=== PATIENT | male | born 1990 ===

== ENCOUNTER 2017-03-12 05:58 | Emergency (ER) | payer OTHER ==
[2017-03-12 06:10] VITALS: O2SAT 97
[2017-03-12] MEDS ORDERED: Naproxen 550 mg Tab PO STA (07:26)
[2017-03-12] MEDS ORDERED: Naproxen 550 mg Tab PO ONE (07:45)
--- NOTE | 2017-03-12 08:00 | C.PDOC ---
History Of Present Illness 27 y/o male presents to the ED with complains of lower back pain for the past 2- 3 months, since he shoveled snow. Pain is in the middle lower back, intermittent , and nonradiating. Pt has been taking Tylenol intermittently with some relief. He denies fever, dysuria/hematuria, abdominal pain, urinary retention, bowel/ bladder incontinence. He is requesting XRay of his low back. Time Seen by Provider: 03/12/17 07:14 Chief Complaint (Nursing): Back Pain History Per: Patient History/Exam Limitations: no limitations Onset/Duration Of Symptoms: Intermittent Episodes, Persistent Current Symptoms Are (Timing): Still Present Quality Of Discomfort: "Pain" Severity: Mild Previous Symptoms: Back Pain Associated Symptoms: None. denies: Incontinence, New Weakness, New Numbness Past Medical History Reviewed: Historical Data, Nursing Documentation, Vital Signs Vital Signs: Last Vital Signs Temp 98.4 F 03/12/17 08:18 Pulse 74 03/12/17 08:18 Resp 18 03/12/17 08:18 BP 116/80 03/12/17 08:18 Pulse Ox 97 03/12/17 08:18 - Medical History PMH: Asthma Family History: States: No Known Family Hx - Social History Hx Alcohol Use: No Hx Substance Use: No Review Of Systems Except As Marked, All Systems Reviewed And Found Negative. Constitutional: Negative for: Fever, Chills Gastrointestinal: Negative for: Nausea, Vomiting, Abdominal Pain, Diarrhea Genitourinary: Positive for: Other (no urinary retention). Negative for: Dysuria, Incontinence, Hematuria Musculoskeletal: Positive for: Back Pain Neurological: Negative for: Weakness, Numbness Physical Exam - Physical Exam Appears: Non-toxic, No Acute Distress Skin: Warm, Dry, No Rash Head: Normacephalic Oral Mucosa: Moist Neck: Supple Cardiovascular: Rhythm Regular Respiratory: Normal Breath Sounds, No Rales, No Rhonchi, No Wheezing Gastrointestinal/Abdominal: Normal Exam, Bowel Sounds, Soft, No Tenderness, No Guarding, No Rebound Back: Normal Inspection, No CVA Tenderness, Vertebral Tenderness (lumbar), Paraspinal Tenderness (lumbar) Extremity: Normal ROM Extremity: Bilateral: Atraumatic, Normal Color And Temperature, Normal ROM Neurological/Psych: Oriented x3, Normal Motor, Normal Sensation Gait: Steady (ambulating normally) ED Course And Treatment O2 Sat by Pulse Oximetry: 97 (room air) Pulse Ox Interpretation: Normal - Other Rad XRAY LS SPINE X-Ray: Interpreted by Me, Viewed By Me (decreased disc space L5/S1, no fractures /listhesis) Progress Note: Plan: Xray of LS spine ordered and reviewed. Patient given PO naprosyn. Reevaluation Time: 08:20 Reassessment Condition: Improved (Patient reassessed, pain has improved and he states he feels better. Patient ambulating normally in the ED. He was given Rx for Naprosyn, and instructed to follow up with orthopedics within 1 week if symptoms persist. He understands he should return to ED if symptoms worsen.) Disposition Counseled Patient/Family Regarding: Studies Performed, Diagnosis, Need For Followup, Rx Given - Disposition Referrals: [facility] Activities Director Service [Outside] Riana Weeks MD [Medical Doctor] - Theo Wolfe MD [Staff Provider] - Disposition: HOME/ ROUTINE Disposition Time: 08:20 Condition: STABLE Additional Instructions: FOLLOW UP WITH YOUR DOCTOR IN 1-2 DAYS IF SYMPTOMS PERSIST, FOLLOW UP WITH ORTHOPEDICS WITHIN 1 WEEK USE MEDICATION NEEDED FOR PAIN RETURN TO ER IF SYMPTOMS WORSEN Prescriptions: Naproxen [Naprosyn Tab] 375 mg PO BID PRN #20 tab PRN Reason: pain Instructions: Acute Low Back Pain (ED) Print Language: BULGARIAN - POA Present On Arrival: None - Clinical Impression Clinical Impression: Low back pain - Scribe Statement The provider has reviewed the documentation as recorded by the Dedra Alexander Provider Attestation: All medical record entries made by the Dedra were at my direction and personally dictated by me. I have reviewed the chart and agree that the record accurately reflects my personal performance of the history, physical exam, medical decision making, and the department course for this patient. I have also personally directed, reviewed, and agree with the discharge instructions and disposition.
--- NOTE | 2017-03-12 08:04 | C.PDOC ---
Time Seen by Provider: 03/12/17 07:14 Chief Complaint (Nursing): Back Pain Past Medical History Vital Signs: Last Vital Signs Temp 97.6 F 03/12/17 06:05 Pulse 90 03/12/17 06:05 Resp 20 03/12/17 06:05 BP 129/86 03/12/17 06:05 Pulse Ox 97 03/12/17 06:05 - Medical History PMH: Asthma - Social History Hx Alcohol Use: No Hx Substance Use: No ED Course And Treatment O2 Sat by Pulse Oximetry: 97 Disposition Counseled Patient/Family Regarding: Studies Performed, Diagnosis, Need For Followup, Rx Given - Disposition Referrals: Theo Wolfe MD [Staff Provider] - Caseworker Service [Outside] Riana Weeks MD [Medical Doctor] - Disposition: HOME/ ROUTINE Disposition Time: 08:00 Condition: STABLE Additional Instructions: FOLLOW UP WITH YOUR DOCTOR IN 1-2 DAYS IF SYMPTOMS PERSIST, FOLLOW UP WITH ORTHOPEDICS WITHIN 1 WEEK USE MEDICATION NEEDED FOR PAIN RETURN TO ER IF SYMPTOMS WORSEN Prescriptions: Naproxen [Naprosyn Tab] 375 mg PO BID PRN #20 tab PRN Reason: pain Instructions: Acute Low Back Pain (ED) Print Language: MACEDONIAN - POA Present On Arrival: None - Clinical Impression Clinical Impression: Low back pain
[2017-03-12 08:20] VITALS: BP 116/80; PULSE 74; RESP 18; TEMP 98.4
--- NOTE | 2017-03-12 10:45 | RAD ---
PROCEDURE: Radiographs of the Lumbar Spine. HISTORY: LOW BACK PAIN COMPARISON: None available. FINDINGS: BONES: Alignment appears satisfactory. No listhesis. No acute displaced fracture identified. DISC SPACES: Mild intervertebral disc space narrowing at L5-S1. Otherwise grossly unremarkable. OTHER FINDINGS: None. IMPRESSION: Mild intervertebral disc space narrowing at L5-S1. Otherwise grossly unremarkable.
== END 2017-03-12 08:25 | disposition home or self-care (01) ==
LOC: C.ER 05:58
DX: M54.5 Low back pain (principal)